=== PATIENT | female | born 1950 | race Caucasian/White ===

== ENCOUNTER 2016-11-28 08:02 | Inpatient (IN) | payer BC ==
[~2016-11-28] VITALS: Ht 165.1 cm; Wt 104.0 kg
--- NOTE | 2016-12-02 07:54 | OR ---
ADMIT: 11/28/2016 RM/LOC: 625 [facility] MR#: [id number] 2620 [facility] [address] [place] [id number] JOEL WEN [address] [place] [address] Operative/Delivery Room Report SEX: F AGE: 66 : 1950 Corrected: 11/29/2016 0655 djs SURGERY DATE: 11/28/2016 SURGEON: Gaston Mayen MD PREOPERATIVE DIAGNOSIS: Locally advanced cecal cancer. POSTOPERATIVE DIAGNOSIS: Locally advanced cecal cancer. PROCEDURES: 1. Right hemicolectomy. 2. Small bowel mesenteric nodule biopsy. SIZE STAMPER: David Del Rio MD, whose assistance was necessary for tissue retraction and exposure during the case. ANESTHESIA: General endotracheal. ESTIMATED BLOOD LOSS: 250 mL. FINDINGS: The cecal mass had obviously invaded the retroperitoneum. Shave biopsy sent for frozen section of the ureter was positive for cancer necessitating partial ureterectomy performed by Dr. Calloway upon intraoperative consultation. There was also 1 separate small, small bowel nodule about 4-5 mm in size which was excised in its entirety and sent for pathology. No other intraabdominal metastases were found. DESCRIPTION OF PROCEDURE: The patient was taken to the operating room and placed supine on the operating room table. General anesthesia was established. The abdomen was prepped and draped in the standard surgical fashion. Vertical midline periumbilical incision was made in the skin and carried through the subcutaneous tissue to the fascia. The fascia and peritoneum were entered in the midline. Inspection of the solid organs of the upper abdomen did not reveal evidence for metastasis. The mass in the right lower quadrant was easily palpable. This was adhesed and tethered to the pelvic wall and the lateral abdominal wall inferiorly. The peritoneum surrounding this was incised with cautery to allow some mobilization. This did, however, extend posteriorly and appeared to penetrate into the retroperitoneum. It was dissected off with a scalpel off the ureter which was only palpable because of the intraluminal stent. This dissection proceeded with mobilization of the white line of Toldt along the ascending colon to the hepatic flexure. The hepatic flexure was mobilized with division of the hepatocolic ligament with Harmonic scalpel. This was carried to the mid transverse colon and dissection away from the omentum. The right colon was mobilized back to its mesenteric base and the duodenal was identified and preserved after mobilization of the colon. A shave biopsy of the anterior margin of the right ureter in the area that appeared to be encased by tumor was sent for frozen section. This did demonstrate malignancy. Dr. Calloway was consulted for intraoperative evaluation and ADMIT: 11/28/2016 RM/LOC: 625 [facility] MR#: [id number] [address] [place] [phone] [facility] [address] [place] [address] Operative/Delivery Room Report SEX: F AGE: 66 : 1950 consideration for ureterectomy of the area involved. This was short segment, approximately 1 cm in length that was involved with the encasement and encroachment by the tumor. The terminal ileum, 10 cm proximal to the tumor was skeletonized and divided with a MILO blue 75 stapler. The mesentery of the right colon was then divided with Harmonic scalpel. The right colic artery was clamped at its base and divided and tied with 0 silk tie. The mesentery was divided in the transverse colon up to the mid transverse colon with preservation of middle colic artery. The transverse colon was skeletonized at this level and divided with a MILO blue 75 stapler. The bowel was sent as right colon specimen. Dr. Calloway then subsequently arrived for evaluation and management of the ureter. For details of his portion of the case, please see his dictation. Next, upon completion of the ureterectomy, the small bowel to transverse colon anastomosis was performed in a [id number] functional end-to- end manner with an Endo MILO blue 75 stapler. A transverse load was used for completion of the anastomosis. This was reinforced with Lembert 3-0 silk suture. The apices of the anastomosis were likewise reinforced with 3-0 silk suture. The mesenteric defect was then closed with 3-0 PDS suture. The abdomen was irrigated and there was no bleeding. The fascial margins were then run, closed with #1 PDS suture. Skin edges and subcutaneous tissues were approximated with skin fabian after irrigation. A dressing was applied. Sponge, needle, and instrument counts were correct at the end of the case. The patient tolerated the procedure well and transferred to the recovery area in stable condition. Gaston Mayen MD/ fadumo JOB #: [id number] CC: Gaston Mayen, Attending Physician [facility] Phys[facility] Corrected: 11/29/2016 0655 can
[2016-12-05] MEDS ORDERED: PRILOSEC DPS20 MG PO (17:30)
[2016-12-05] MEDS ORDERED: CLARITIN DPS10 MG PO (17:30)
[2016-12-05] MEDS ORDERED: THERAPEUTIC MUL1 TAB PO (17:30)
[2016-12-05] MEDS ORDERED: BIOTIN PLUS KE1 EACH PO (17:31)
[2016-12-05] MEDS ORDERED: NASACORT16.9 ML NS (17:31)
[2016-12-05] MEDS ORDERED: ZOFRAN4 MG PO (17:32)
[2016-12-05] MEDS ORDERED: TRIMPEX DPS100 MG PO (17:32)
[2016-12-05] MEDS ORDERED: HYDROCODON-ACE1 EAC4 PO (17:32)
[2016-12-05] MEDS ORDERED: NEOSPORIN-DPS15 GM TP (17:32)
--- NOTE | 2016-12-20 08:28 | OR ---
ADMIT: 11/28/2016 RM/LOC: W.04 [facility] MR#: [id number] [facility]#: [id number] [address] [address] JOEL WEN [address] [place] [address] Operative/Delivery Room Report SEX: F AGE: 66 : 1950 SURGERY DATE: 11/28/2016 SURGEON: Vijay Calloway MD PREOPERATIVE DIAGNOSES: 1. Right hydronephrosis. 2. Cecal mass. POSTOPERATIVE DIAGNOSES: 1. Right hydronephrosis. 2. Cecal mass. PROCEDURE: Diagnostic cystoscopy, right retrograde pyelogram, and right ureteral stent placement. ANESTHESIA: General. INDICATION: The patient is a pleasant white female, who presents with a cecal mass associated right hydronephrosis, have been requested to place a stent prior to open right colectomy. Risks and benefits were discussed with the patient. Site has been marked. She does consent to procedures. Preoperative antibiotics ordered by Dr. Mayen. DESCRIPTION OF PROCEDURE: The patient vika hall was taken to OR #5, placed on the table in supine position. After adequate anesthesia, transferred to dorsal lithotomy position, prepped and draped in the usual fashion. Time-out was taken for patient name, date of , planned procedure, preoperative antibiotics and allergies. A 21-Belarusian cystoscope with 30-degree lens was advanced to the level of bladder. The urethra was unremarkable. Bladder is normal in appearance. There were no mucosal lesions. There was no inflammation. Each ureteral orifice visualized in normal positions. An 8-Belarusian cone-tipped catheter was used to cannulate the right ureteral orifice. Retrograde pyelogram outlines a normally distensible ureter narrowing near the iliac vessels. Proximal hydronephrosis was noted. At this point, I went ahead and removed the cone-tipped catheter. I went ahead and passed an angled-tip Glidewire. This advanced to the upper collecting system without obstruction. I did go ahead and pass a 6-Belarusian ureteral access ADMIT: 11/28/2016 RM/LOC: WYo [facility] MR#: [id number] [address] [address] JOEL WEN [address] [place] [address] Operative/Delivery Room Report SEX: F AGE: 66 : 1950 catheter with indwelling guidewire. With removal of the catheter, we had a nice brisk hydronephrotic drip. I did inject some more contrast outlining a dilated collecting system. I replaced the guidewire and the ureteral access catheter was removed. The guidewire was backloaded through the cystoscope. Cystoscope was advanced to the level of the bladder. Under direct fluoroscopic visualization, a 7-Belarusian 26 cm double-J stent was placed. With removal of the guidewire, we had a nice curl within the pelvis, nice curl within the urinary bladder. At this point, the bladder was left filled to partial capacity. The scope was withdrawn. An 18-Belarusian Sheth catheter was then passed per urethra and left to gravity drainage. The patient was taken out of dorsal lithotomy position. She was transferred to Dr. Mayen's OR room for continuation of open right colectomy. Vijay Calloway MD/ fadumo JOB #: [id number] CC: Gaston Mayen, Attending Physician Kelly Alberto, Family Physician
--- NOTE | 2016-12-20 08:28 | OR ---
ADMIT: 11/28/2016 RM/LOC: 625 [facility] MR#: [id number] [id number] 2620 [facility] [address] [place] [phone] JOEL WEN [address] [place] [address] Operative/Delivery Room Report SEX: F AGE: 66 : 1950 SURGERY DATE: 11/28/2016 SURGEON: Vijay Calloway MD PREOPERATIVE DIAGNOSIS: Cecal carcinoma with ureteral involvement. POSTOPERATIVE DIAGNOSIS: Cecal carcinoma with ureteral involvement. PROCEDURE: Excision of the involved ureter and ureteral ureterostomy. ANESTHESIA: General. SPOT WELDER LINE: Gaston Mayen MD. BRIEF HISTORY: Patient is a pleasant white female, who I had stented earlier today. Upon exploration, there was involvement of the anterior surface of the ureter. I was asked by the surgeon to step into the operating field to assess the situation and possibly excise the diseased portion of ureter and create a ureteral ureterostomy. PROCEDURE IN DETAIL: I had stepped in to the operating field. Exposure was excellent. We had exposure to the diseased portion of ureter as well as proximal ureter. Proximal ureter was mobilized just taking down some serosal attachments to the retroperitoneum. We did have to take down a vascular pedicle that was basically going right into this disease portion of ureter. This was dissected with right angle dissection, cross clamped, cut, and secured with a 2-0 Polysorb tie. We were able to mobilize the ureter more distally. There was a medial and vascular supply which I did leave intact as I felt like we would have adequate mobilization. Once I had assessed mobilization of the ureter, I felt like we had adequate ureteral length given the dilated proximal portion of the ureter to cover the gap left by excision of the diseased portion the ureter. At this point, I did incise the distal to the diseased portion of ureter with a #15 blade exposing the stent and ureteral lumen. A 4-0 silk stay suture was then placed here. The remaining ureter was then incised circumferentially using the Nunez scissors. We then moved to a site more proximal to the diseased portion of ureter and the ureter was incised circumferentially around the stent with the Nunez scissors. We were able to take back a little bit of the adventitial layer exposing the muscularis and mucosal layers nicely. At this point, I went ahead and bivalved the diseased portion of ureter and it was handed off and removed. We were careful to leave the stent in proper position. At this point, I spatulated the distal stump of the ureter. I elected not to spatulate the more dilated proximal portion. We then used 4-0 Vicryl sutures to create our anastomosis, 2 sutures were placed posteriorly at the 6 o'clock position between the proximal and distal ureter keeping our knots on the outside portion of the ureter. Once I had placed the sutures, each suture was tied down and we had very nice posterior approximation of the ureteral stumps. We then ran the suture medially closing the medial aspect of our ureterotomy nicely. I then closed the lateral aspect with a running suture as well. We ADMIT: 11/28/2016 RM/LOC: 625 [facility] MR#: [id number] [address] [place] [phone] SUZETTEJOEL Frias J [address] [place] [address] Operative/Delivery Room Report SEX: F AGE: 66 : 1950 did take this down and the proximal ureter reached down nicely into the spatulated distal portion the ureter. Once I felt we had nice mucosal apposition, I did go ahead and tied the sutures down. This went very nicely. There was just a bit of adventitial tissue available. I did cover the anastomosis as best I could with interrupted 4-0 Vicryl suture. It should be noted that as we did go along with our anastomosis, we did make sure that we did not involve the stent with our anastomosis. At this point, I was very satisfied ureter was not under any tension. We could not visualize the stent, the anastomosis appeared to be very tight. I was satisfied with adventitial coverage as much as possible and I was able leave this medial vascular supply to the distal stump intact. At this point, I went ahead and turned the case back over to Dr. Mayen who proceeded with resection of the mass and his intestinal anastomosis. I have recommended that we leave the stent in for 6 weeks. She will keep her catheter for 7-10 days, most likely, see me back for removal of the catheter at that point in time. Vijay Calloway MD/ fadumo JOB #: [id number] CC: Gaston Mayen, Attending Physician Kelly Alberto, Family Physician
--- NOTE | 2016-12-21 15:28 | DS ---
ADMIT: 11/28/2016 RM/LOC: 625 [facility] MR#: [id number] [address] [address] JOEL WEN [address] [place] [address] Discharge Summary SEX: F AGE: 66 : 1950 ADMISSION DATE: 11/28/2016 DISCHARGE DATE: 12/04/2016 ADMITTING DIAGNOSIS: Locally advanced cecal cancer. DISMISSAL DIAGNOSES: 1. 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 Five of the 22 lymph nodes were positive for metastatic adenocarcinoma. Tumor extending into the right ureter and mesentery. 2. Right hydronephrosis. 3. Previous tonsillectomy. 4. GERD (gastroesophageal reflux disease). 5. Hiatal hernia. 6. Seasonal allergies. 7. Cataracts. PROCEDURES: 1. Right king colectomy, open. 2. Small-bowel mesenteric nodule biopsy. 3. Diagnostic cystoscopy. 4. Right retrograde pyelogram. 5. Right ureteral stent placement. 6. Excision of involved ureter and ureterostomy. HOSPITAL COURSE: After surgery, the patient was an inpatient admit with routine med/surg orders. After surgery, the patient transferred to the floor without any complications. She was started on an epidural and was given a morphine MATRIX BATH ATTENDANT for pain control. Urology also followed along given their involvement in this case. Please also refer to their notes. Overall, the patient recovered well while in the hospital. She did have some nausea immediately after surgery but resolved on its own. Her pain was well controlled given the epidural. On postop day #2, Lovenox was held, and the epidural was pulled on postop day #4. She was also weaned off her morphine MATRIX BATH ATTENDANT and was tolerating oral pain medications. She was tolerating an advanced diet and had normal return of her bowel function. Blood pressures did begin to increase, so we turned down her fluids and started her on clonidine. Her systolic pressures began to return to her usual reading. She continued to recover well and was able to discharge to home with Home Health Care on 12/04/2016. She discharged to home with a Sheth in place that was placed intraoperatively. DISCHARGE INSTRUCTIONS: 1. Follow up with Dr. Mayen on December 09. ADMIT: 11/28/2016 RM/LOC: 625 [facility] MR#: [id number] [address] [place] [phone] JOEL WEN [address] [place] [address] Discharge Summary SEX: F AGE: 66 : 1950 2. Follow up with Dr. Chinedu Calloway on FridayDecember 25. DISCHARGE MEDICATION LIST: 1. Omeprazole 20 mg daily. 2. Claritin 10 mg daily. 3. Multivitamin daily. 4. Biotin 10,000 mcg plus keratin daily. 5. Nasacort Allergy 1 spray daily p.r.n. 6. Hydrocodone/acetaminophen 5/325 one to two tabs q.4 hours p.r.n. 7. Ondansetron 4 mg q.4 p.r.n. 8. Trimpex 100 mg daily. 9. Neosporin ointment b.i.d. BRET Morales / Gaston Mayen MD / vincef JOB #: [id number] CC: Gaston Mayen MD, Attending Physician Kelly Alberto MD, Family Physician
[2017-04-01] MEDS ORDERED: NEURONTIN DPS100 MG PO (19:11)
[2017-04-01] MEDS ORDERED: ULTRAM DPS50 MG PO (19:12)
[2017-04-01] MEDS ORDERED: COMPAZINE10 MG PO (19:12)
[2017-04-01] MEDS ORDERED: IBUPROFEN400 MG PO (19:12)
[2017-04-01] MEDS ORDERED: IMODIUM DPS2 MG PO (19:13)
[2017-04-01] MEDS ORDERED: SALINE NASAL SP88 ML NS (19:13)
[2017-04-01] MEDS ORDERED: BACTRIM DS TAB1 EACH PO (19:14)
== END 2016-12-04 18:20 | disposition home health service (06) | DRG 330 ==
LOC: 6PED 08:02 → WOR 08:02 → 6PED 14:31
PROVIDERS: ADMIT Surgery
PROC: 0T768DZ Dilation of Right Ureter with Intraluminal Device, Via Natural or Artificial Opening Endoscopic (ICD-10-PCS; principal; 2016-11-28)
PROC: BT1D1ZZ Fluoroscopy of Right Kidney, Ureter and Bladder using Low Osmolar Contrast (ICD-10-PCS; principal; 2016-11-28)
PROC: 0DB80ZX Excision of Small Intestine, Open Approach, Diagnostic (ICD-10-PCS; principal; 2016-11-28)
PROC: 0DTF0ZZ Resection of Right Large Intestine, Open Approach (ICD-10-PCS; principal; 2016-11-28)
PROC: 0TB60ZZ Excision of Right Ureter, Open Approach (ICD-10-PCS; principal; 2016-11-28)
DX: C18.0 Malignant neoplasm of cecum (principal); N13.30 Unspecified hydronephrosis; C77.9 Secondary and unspecified malignant neoplasm of lymph node, unspecified; C79.19 Secondary malignant neoplasm of other urinary organs; K57.30 Diverticulosis of large intestine without perforation or abscess without bleeding; K21.9 Gastro-esophageal reflux disease without esophagitis; K44.9 Diaphragmatic hernia without obstruction or gangrene